=== PATIENT | female | born 1985 | race Caucasian/White ===

== ENCOUNTER 2017-09-14 07:51 | Outpatient (CLI) | payer BC ==
--- NOTE | 2017-09-15 09:36 | NM ---
RADIOIODINE THYROID UPTAKE AND SCAN: Date: 09/14/17 HISTORY: Abnormal thyroid function test. RADIOPHARMACEUTICAL: 263 microcuries Iodine-123 administered orally. FINDINGS: Planar anterior and anterior oblique images of the thyroid gland were obtained. There is homogeneous tracer distribution to both lobes of the thyroid gland without focal cold or hot nodules. The 24 hour uptake measures 17.3% (normal 10-30%). IMPRESSION: Normal thyroid uptake and scan. POS: OFF
== END 2017-09-14 07:52 | disposition home or self-care (01) ==
LOC: NM 07:51
PROVIDERS: ATTEND Internal Medicine Endocrinology, Diabetes & Metabolism
DX: I34.1 Nonrheumatic mitral (valve) prolapse (principal); R94.6 Abnormal results of thyroid function studies
CPT/HCPCS: 78014; 93306; A9516

== ENCOUNTER 2017-09-23 15:45 | Outpatient (CLI) | payer BC | END 2017-09-23 15:46 | disposition home or self-care (01) | LOC: BICRAD 15:45 | PROVIDERS: ATTEND Student in an Organized Health Care Education/Training Program | DX: M25.511 Pain in right shoulder (principal); M79.601 Pain in right arm; G62.9 Polyneuropathy, unspecified; M40.50 Lordosis, unspecified, site unspecified | CPT/HCPCS: 72040 ==

== ENCOUNTER 2017-11-06 08:30 | Outpatient (CLI) | payer BC | END 2017-11-06 08:31 | disposition home or self-care (01) | LOC: BICMRI 08:30 | PROVIDERS: ATTEND Orthopaedic Surgery Hand Surgery | DX: M47.22 Other spondylosis with radiculopathy, cervical region (principal); M50.121 Cervical disc disorder at C4-C5 level with radiculopathy; M34.9 Systemic sclerosis, unspecified | CPT/HCPCS: 70553; 72141 ==

== ENCOUNTER 2017-12-16 12:36 | Outpatient (CLI) | payer BC | END 2017-12-16 12:37 | disposition home or self-care (01) | LOC: BICMRI 12:36 | PROVIDERS: ATTEND Physician Assistant Surgical | DX: M51.17 Intervertebral disc disorders with radiculopathy, lumbosacral region (principal); M47.27 Other spondylosis with radiculopathy, lumbosacral region; M54.6 Pain in thoracic spine | CPT/HCPCS: 72146; 72148 ==

== ENCOUNTER 2018-08-11 12:24 | Outpatient (CLI) | payer BC ==
--- NOTE | 2018-08-11 14:38 | RAD ---
AP PELVIS RADIOGRAPH: Date: 08-11-18 History: This exam was initially scheduled as a hysterosalpingogram. The patient reported a history of develop ment of rash after HSG several years ago. As a result, the patient will be brought back after pre-med ication given question of contrast allergy. FINDINGS: AP view of the pelvis demonstrates calcifications overlying the pelvis likely related to phleboliths. Osseous structures appear intact. No other findings. IMPRESSION: No acute findings. POS: [facility]
== END 2018-08-11 12:25 | disposition home or self-care (01) ==
LOC: RAD 12:24
PROVIDERS: ATTEND Obstetrics & Gynecology
DX: Z31.41 Encounter for fertility testing (principal)
CPT/HCPCS: 58340; 74740

== ENCOUNTER 2018-08-13 08:45 | Outpatient (CLI) | payer BC ==
[2018-08-13] MEDS ORDERED: Iopamidol 300 61% 50 ML VIAL FS ONE (09:52)
--- NOTE | 2018-08-13 12:50 | RAD ---
HYSTEROSALPINGOGRAM: 08/13/2018 HISTORY: Infertility. COMPARISON: None available. TECHNIQUE: The procedure was discussed with the patient. A speculum was placed to expose the cervix. However, a 5 Ethiopian catheter was unable to be placed through the cervical canal. Dr. Borges assisted with t he procedure and was also unable to place a catheter within the cervix. As a result, Dr. Sood was n otified of the inability to place a catheter within the cervix. As a result, [employer] assisted with pl acement of the catheter within the endocervical canal. The distal balloon was inflated with approxim ately 3 mL of gas. Contrast was injected, demonstrating a small filling defect on initial injection, related to a gas bubble. No additional filling defect or irregularity of the margins of the endomet rial canal is noted. There is tinting of the distal portion of the endometrial canal, due to placeme nt of the catheter. A normal appearing left ovary is present, with free spill of contrast seen on th e left. The right ovary is visualized, but there is no free spill of contrast throughout the exam. Anterior and oblique projections are obtained. The distal balloon was deflated, and the balloon was removed. The speculum was removed. The patient tolerated the procedure well and without immediate c omplication. FLUOROSCOPY: Total fluoroscopy time 2.6 minutes with total dose 200.7 mGy per m2. IMPRESSION: 1. Normal appearing endometrial canal and left fallopian tube with free spill of contrast seen on th e left. 2. Right fallopian tube is visualized, but no free spill of contrast is seen on the right. POS: [facility]
== END 2018-08-13 08:46 | disposition home or self-care (01) ==
LOC: RAD 08:45
PROVIDERS: ATTEND Obstetrics & Gynecology
DX: Z31.41 Encounter for fertility testing (principal)
CPT/HCPCS: 58340; 74740; Q9967

== ENCOUNTER 2019-08-05 08:52 | Outpatient (CLI) | payer BC ==
--- NOTE | 2019-08-05 13:03 | ULT ---
LIMITED LEFT BREAST ULTRASOUND: Date: 08/05/2019 PROVIDED CLINICAL HISTORY: Left breast discharge and focal pain. FINDINGS: Limited sonographic interrogation was performed of the left breast in the region of patient pain and retroareolar region. Simple cysts are seen involving the left breast at the 3 o'clock position. No co ncerning sonographic findings are evident in the region of patient pain or retroareolar region. IMPRESSION: BIRADS Category 2 - Benign findings. No sonographic abnormality is evident to explain the patient's b reast pain or discharge. Negative or benign imaging findings should not preclude further evaluation o f the clinically suspicious abnormality. The patient is referred back to her clinician. POS: OFF
--- NOTE | 2019-08-05 13:35 | ULT ---
LIMITED RIGHT BREAST ULTRASOUND: DATE: 08/05/2019. PROVIDED CLINICAL HISTORY: Pain and discharge. FINDINGS: Limited sonographic interrogation was performed in the regions of patient pain and the retroareolar r egion of the right breast. There are simple cysts present at the 9 and 11 o'clock positions of the r ight breast measuring less than a centimeter. No concerning sonographic findings are evident. IMPRESSION: BIRADS category 2 - benign findings. No sonographic findings to explain the patient's breast pain or discharge. Negative or benign findings should not preclude further evaluation of a clinically suspi cious finding. The patient is referred back to her clinician. POS: OFF
--- NOTE | 2019-08-11 13:26 | MMO ---
Bilateral MAMMO Bilat Diag [facility]. CLINICAL HISTORY: Patient is 34 years old and is seen for diagnostic exam. The patient has the following family history of breast cancer: mother, at age 22 and 2 maternal aunts, UTERINE. The patient has no personal history of cancer. VIEWS: The views performed were: bilateral craniocaudal with tomosynthesis; bilateral mediolateral oblique with tomosynthesis; and bilateral mediolateral with tomosynthesis. FILMS COMPARED: The present examination has been compared to a prior imaging study performed at [facility] on 08/05/2019. This study has been interpreted with the assistance of computer-aided detection. MAMMOGRAM FINDINGS: The breasts are extremely dense, which may lower the sensitivity of mammography. There are no suspicious masses, suspicious calcifications, or areas of architectural distortion. There are no mammographic or sonographic abnormalities to explain the patient's reported bilateral breast pain and discharge. The patient is referred back to her clinician. Negative imaging findings should not preclude biopsy if clinical findings are suspicious. IMPRESSION: THERE IS NO MAMMOGRAPHIC EVIDENCE OF MALIGNANCY. THE RESULTS OF THIS EXAM WERE SENT TO THE PATIENT. ACR BI-RADS Category 1 - Negative MAMMOGRAPHY NOTE: 1. A negative mammogram report should not delay a biopsy if a dominant of clinically suspicious mass is present. 2. Approximately 10% to 15% of breast cancers are not detected by mammography. 3. Adenosis and dense breasts may obscure an underlying neoplasm. Reported by: LATONYA HOPE MD Electonically Signed: [id number]
== END 2019-08-05 08:53 | disposition home or self-care (01) ==
LOC: BICMAMMO 08:52
PROVIDERS: ATTEND Obstetrics & Gynecology
DX: N63.10 Unspecified lump in the right breast, unspecified quadrant (principal); N63.20 Unspecified lump in the left breast, unspecified quadrant
CPT/HCPCS: 77066; G0279